=== PATIENT | male | born 1995 | race Caucasian/White ===

== ENCOUNTER → 2019-04-06 | Outpatient (CLI) | payer BC ==
[2019-04-06 11:39] LABS: HCT 49.3 % (39.0-53.0); HGB 16.2 gm/dL (13.0-17.5); MCH 30.8 pg (25.0-35.0); MCHC 32.9 g/dL (31.0-37.0); MCV 93.9 fL (80.0-100.0); Mean Platelet Volume 6.6; Platelet Count 164 k/uL (150-450); RBC 5.25 m/uL (4.30-5.90); RDW 12.2 % (11.5-15.5); WBC 5.8 k/uL (3.8-10.6)
== END | disposition home or self-care (01) ==
LOC: LABWHC1 09:58
PROVIDERS: ATTEND Surgery
DX: Z01.812 Encounter for preprocedural laboratory examination (principal); K46.9 Unspecified abdominal hernia without obstruction or gangrene
CPT/HCPCS: 36415; 85027

== ENCOUNTER 2019-04-07 09:26 | Day surgery (SDC) | payer BC ==
[2019-04-06 08:32] VITALS: BMI 26.4
[~2019-04-07 09:26] MED LIST: HEPARIN SODIUM,PORCINE 5,000 UNIT/ML 1 ML VIAL SQ ONE; LACTATED RINGERS 1,000 ML IV SCH; ONDANSETRON 4 MG/2 ML VIAL IVP ONE; fentaNYL (PF) 50 MCG/ML 2 ML AMP IV PRN
[2019-04-07 10:09] VITALS: RESP 16; TEMP 98
[2019-04-07] MEDS ORDERED: DEXAMETHASONE SOD PHOS (MDV) 100 MG/10 ML VIAL IVP ONE (10:30)
--- NOTE | 2019-04-07 11:17 | P.GSHP ---
History of Present Illness H&P Date: 04/07/19 Chief Complaint: Right inguinal hernia This is a 23-year-old male who presents today for laparoscopic robotic-assisted repair of right inguinal hernia. Patient's elevated tender mass in the right groin. Past Medical History Additional Past Medical History / Comment(s): hernia History of Any Multi-Drug Resistant Organisms: None Reported Additional Past Surgical History / Comment(s): eye sx as a child Past Anesthesia/Blood Transfusion Reactions: No Reported Reaction Smoking Status: Current every day smoker - Past Family History Mother Family Medical History: No Reported History Medications and Allergies Home Medications Medication Instructions Recorded Confirmed Type No Known Home Medications 04/06/19 04/06/19 History Allergies Allergy/AdvReac Type Severity Reaction Status Date / Time No Known Allergies Allergy Verified 04/06/19 08:16 Surgical - Exam Vital Signs Temp Pulse Resp BP Pulse Ox 98.0 F 56 L 16 131/86 100 04/07/19 10:08 04/07/19 10:08 04/07/19 10:08 04/07/19 10:08 04/07/19 10:08 - General well developed, well nourished, no distress - Eyes PERRL - ENT normal pinna - Neck no masses - Respiratory normal expansion - Cardiovascular Rhythm: regular - Abdomen Abdomen: soft, non tender Hernia: inguinal (Right inguinal hernia) Assessment and Plan Assessment: Right inguinal hernia. We'll perform laparoscopic robotic-assisted repair.
[2019-04-07] MEDS ORDERED: PROPOFOL 10 MG/ML 20 ML VIAL IV ONE (11:30)
[2019-04-07] MEDS ORDERED: ROCURONIUM BROMIDE 10 MG/ML 10 ML VIAL IV ONE (11:30)
[2019-04-07] MEDS ORDERED: HYDROmorphone (PF) 1 MG/ML ONE (11:30)
[2019-04-07] MEDS ORDERED: LIDOCAINE 1% INJ 10MG/ML (20 ML MDV) ONE (11:30)
[2019-04-07] MEDS ORDERED: fentaNYL (PF) 50 MCG/ML 2 ML AMP ONE (11:30)
[2019-04-07] MEDS ORDERED: GLYCOPYRROLATE 0.2 MG/ML 2 ML VIAL ONE (11:30)
[2019-04-07] MEDS ORDERED: KETOROLAC 30 MG/ML 1 ML VIAL ONE (11:30)
[2019-04-07] MEDS ORDERED: SUCCINYLCHOLINE CHLORIDE 100 MG/5 ML SYR IV ONE (11:30)
[2019-04-07] MEDS ORDERED: MIDAZOLAM 2 MG/2 ML VIAL ONE (11:30)
[2019-04-07] MEDS ORDERED: NEOSTIGMINE 1 MG/ML 10 ML VIAL ONE (11:30)
[2019-04-07] MEDS ORDERED: LIDOCAINE 1%-EPI 1:100,000 20 ML VIAL SQ ONE (11:56)
[2019-04-07] MEDS ORDERED: HYDROmorphone 1 MG/ML 1 ML SYRINGE IVP ONE ×2 (12:53→13:01)
[2019-04-07] MEDS ORDERED: HYDROcodone/APAP 5-325MG 1 EACH TAB PO ONE (13:39)
[2019-04-07 13:59] VITALS: BP 130/78; PULSE 54
--- NOTE | 2019-04-20 17:02 | P.OP ---
Date of Procedure: 04/07/19 Preoperative Diagnosis: Right inguinal hernia Postoperative Diagnosis: Right inguinal hernia Procedure(s) Performed: Laparoscopic robotic assist repair of right inguinal hernia Anesthesia: MAC Surgeon: Hussein Morrison Estimated Blood Loss (ml): 5 Pathology: none sent Condition: stable Disposition: PACU Description of Procedure: The patient was placed on the operating table in the supine position. The patient received general anesthesia. The patient's abdomen was prepped and draped in usual sterile fashion. The skin was anesthetized 1% local Xylocaine at the incision sites. Using an 11 blade a skin incision was made at the umbilicus. The fascia was grasped with a [place] and then the peritoneal cavity was entered with the Veress needle. Position of the Veress needle was confirmed with a positive drop test. After adequate insufflation a 5 mm trocar was placed into the peritoneal cavity. The Laparoscope was placed the peritoneal cavity. And a robotic 8 mm trocar was placed in the right lateral position and then another 8 mm robotic trochars placed in the left lateral position. The original 5 mm trocar was exchanged for a 12 mm trocar. The patient was placed in reverse Trendelenburg and then the patient was docked to the robot. Next the peritoneum over top of the hernia was incised and then using blunt and sharp dissection and electrocautery the hernia sac was dissected free from the floor of the inguinal canal. The hernia sac was completely reduced into the peritoneal cavity. And then using the Pro forge operator helper mesh the hernia was repaired. The peritoneum was then sutured with 2-0V lock suture. The patient was then undocked the robot. The needle was withdrawn from the peritoneal cavity. The umbilical trocar site was closed with 0 Ethibond suture. The skin was closed interrupted 3-0 Monocryl suture. Dermabond dressing was applied. Patient was sent to recovery in stable condition.
== END 2019-04-07 14:10 | disposition home or self-care (01) ==
LOC: OR 09:26
PROVIDERS: ATTEND Surgery
DX: K40.90 Unilateral inguinal hernia, without obstruction or gangrene, not specified as recurrent (principal); D17.6 Benign lipomatous neoplasm of spermatic cord; F17.200 Nicotine dependence, unspecified, uncomplicated; Z98.890 Other specified postprocedural states
CPT/HCPCS: 88304; 49650; C1781; J2250; J1644; J2710; J2405; J2001; J3010; J1885; J1170; J1100; J0330; J2704